=== PATIENT | female | born 1955 | race Caucasian/White ===

== ENCOUNTER 2025-04-21 11:53 | Emergency (ER) | payer MEDICARE, BC ==
[2025-04-21 12:14] LABS: APPEARANCE,URINE CLOUDY (CLEAR); BILIRUBIN,URINE NEGATIVE (NEGATIVE); COLOR,URINE YELLOW (YELLOW); GLUCOSE,URINE NEGATIVE (NEGATIVE); KETONES,URINE NEGATIVE (NEGATIVE); LEUKOCYTE ESTERASE,URINE MODERATE (NEGATIVE); NITRITE,URINE NEGATIVE (NEGATIVE); PROTEIN,URINE NEGATIVE (NEGATIVE); UROBILINOGEN,URINE 0.2 E.U./dL (0.2-1.0)
[2025-04-21 12:22] LABS: OCCULT BLOOD,URINE SMALL (NEGATIVE)
[2025-04-21 12:23] LABS: WBC,URINE 40-50 /HPF (0-5)
[2025-04-21 12:24] LABS: BACTERIA,URINE FEW /HPF (NONE TO FEW); EPITHELIAL CELLS,URINE FEW /LPF
[2025-04-21] MEDS: Ciprofloxacin 500 MG Tab PO ONE (12:36)
[2025-04-21] MEDS: Phenazopyridine 95 MG Tab PO SCH (12:37)
== END 2025-04-21 12:45 | disposition home or self-care (01) ==
LOC: KA.ED 11:53
DX: N39.0 Urinary tract infection, site not specified (principal); E78.00 Pure hypercholesterolemia, unspecified; E03.9 Hypothyroidism, unspecified; Z79.890 Hormone replacement therapy; Z79.899 Other long term (current) drug therapy; Z88.5 Allergy status to narcotic agent; Z88.8 Allergy status to other drugs, medicaments and biological substances
CPT/HCPCS: 81001; 87086; 87088; 99283; 99284; A9270-GY